=== PATIENT | male | born 1935 | race Caucasian/White ===

== ENCOUNTER 2017-01-24 22:11 | Emergency (ER) | payer MEDICARE ==
[2017-01-24 22:45] VITALS: BP 161/95
== END 2017-01-24 23:08 | disposition left against medical advice (07) ==
LOC: ER 22:11
DX: Z53.21 Procedure and treatment not carried out due to patient leaving prior to being seen by health care provider (principal)

== ENCOUNTER → 2017-12-27 | Outpatient (CLI) | payer MEDICARE ==
[2017-12-27 09:37] LABS: CHOLESTEROL 130.94 mg/dL (0-200); TRIGLYCERIDES 84 mg/dL (<150)
[2017-12-27 09:45] LABS: DIRECT LDL 59 mg/dL (<100)
== END ==
LOC: OD 08:33
PROVIDERS: ATTEND Family Medicine Geriatric Medicine
DX: E03.9 Hypothyroidism, unspecified (principal); E78.5 Hyperlipidemia, unspecified; E55.9 Vitamin D deficiency, unspecified; Z79.899 Other long term (current) drug therapy
CPT/HCPCS: 36415; 80061; 82607; 83735; 84443

== ENCOUNTER 2018-04-05 22:45 | Emergency (ER) | payer MEDICARE ==
[2018-04-05 23:05] VITALS: BP 177/78
== END 2018-04-05 23:54 | disposition left against medical advice (07) ==
LOC: ER 22:45
DX: Z53.21 Procedure and treatment not carried out due to patient leaving prior to being seen by health care provider (principal)

== ENCOUNTER → 2018-04-29 | Outpatient (CLI) | payer MEDICARE ==
--- NOTE | 2018-04-29 15:59 | RADIOLOGY REPORT (SQ) ---
EXAM DESCRIPTION: CT CHEST WITHOUT COMPLETED DATE/TIME: 04/29/2018 1:55 pm REASON FOR STUDY: R91.1 SOLITARY PULMONARY NODULE R91.1 SOLITARY PULMONARY NODULE COMPARISON: None. TECHNIQUE: CT scan performed of the chest without intravenous contrast. Images reviewed with lung, soft tissue and bone windows. Reconstructed coronal and sagittal MPR images reviewed. All images st ored on PACS. All CT scanners at this facility use dose modulation, iterative reconstruction, and/or weight based d osing when appropriate to reduce radiation dose to as low as reasonably achievable (ALARA). [facility]: Dose Right [facility]: CareDose [facility]: Dose Right [facility]: Teradose 4D [facility]: [employer] RADIATION DOSE: CT Rad equipment meets quality standard of care and radiation dose reduction techniq ues were employed. CTDIvol: 7.0 mGy. DLP: 301 mGy-cm. mGy. LIMITATIONS: No technical limitations. FINDINGS: LUNGS AND PLEURA: 7 mm subpleural ground-glass nodule in the right lung on image 43. HILAR AND MEDIASTINAL STRUCTURES: No identified masses or abnormal nodes. No obvious aneurysm. HEART AND VASCULAR STRUCTURES: No aneurysm. No pericardial effusion. Significant coronary atheroscl erosis. UPPER ABDOMEN: Abdominal aortic stent. THYROID AND OTHER SOFT TISSUES: No masses. No adenopathy. BONES: No significant finding. HARDWARE: None in the chest. OTHER: No other significant findings. IMPRESSION: 1. 7 mm subpleural ground-glass nodule in the right lung. 2. Coronary atherosclerosis. COMMENT: Fleischner Criteria for Ground Glass Nodules: >6mm ground glass single nodule: CT 6-12 mo, then CT every 2 yr until 5 yr TECHNICAL DOCUMENTATION: JOB ID: [id number] Quality ID # 436: Final reports with documentation of one or more dose reduction techniques (e.g., Au tomated exposure control, adjustment of the mA and/or kV according to patient size, use of iterative reconstruction technique) 2010 [employer]- All Rights Reserved Reading location - IP/workstation name: [email or web address]
== END ==
LOC: RAD 14:20
PROVIDERS: ATTEND Family Medicine Geriatric Medicine
DX: R91.1 Solitary pulmonary nodule (principal); I25.10 Atherosclerotic heart disease of native coronary artery without angina pectoris
CPT/HCPCS: 71250

== ENCOUNTER → 2018-11-06 | Day surgery (SDC) | payer MEDICARE ==
--- NOTE | 2018-11-06 14:32 | RADIOLOGY REPORT (SQ) ---
EXAM DESCRIPTION: ARTHRO SHOULDER INJECTION; FLUORO/NEEDLE PLACEMENT COMPLETED DATE/TIME: 11/06/2018 2:17 pm REASON FOR STUDY: INCOMPLETE ROTATOR CUFF TEAR OR RUPTURE OF R SHOULDER (M75.111) M75.111 INCOMPLET E ROTATR-CUFF TEAR/RUPTR OF R SHOULDER, NOT COMPARISON: None. FLUOROSCOPY TIME: 22 seconds. 2 images saved to PACS. LIMITATIONS: None. PROCEDURE: Procedure, risks, benefits and alternative explained to patient who then gave written con sent. The right shoulder was marked and a time-out was called for correct marking verification. Pos terior entry site marked using fluoroscopic guidance. Shoulder prepped and draped using maintenance technician 3rd shift nique. Local anesthesia achieved using 1% lidocaine injection. 22 gauge spinal needle introduced int o the joint space under direct fluoroscopic visualization. Non-ionic contrast instilled to confirm i ntra-articular position. Additional dilute non-ionic contrast instilled. Needle removed and entry s ite covered with sterile bandage. No immediate complications noted. TECHNIQUE: Digital images acquired during fluoroscopy and stored on PACS. Patient immediately take n to the CT suite for additional imaging. INJECTION LOCATION: Posterior right shoulder. CONTRAST TYPE AND AMOUNT: 2 mL Omnipaque initially followed by 10 mL Omnipaque saline solution. IMPRESSION: SUCCESSFUL NEEDLE PLACEMENT AND INJECTION FOR RIGHT SHOULDER CT ARTHROGRAM USING POSTERI OR APPROACH. COMMENT: Quality ID 145: Final reports for procedures using fluoroscopy that document radiation exp osure indices, or exposure time and number of fluorographic images (if radiation exposure indices are not available) TECHNICAL DOCUMENTATION: JOB ID: [id number] [employer]- All Rights Reserved Reading location - IP/workstation name: [facility]
--- NOTE | 2018-11-06 14:32 | RADIOLOGY REPORT (SQ) ---
EXAM DESCRIPTION: ARTHRO SHOULDER INJECTION; FLUORO/NEEDLE PLACEMENT COMPLETED DATE/TIME: 11/06/2018 2:17 pm REASON FOR STUDY: INCOMPLETE ROTATOR CUFF TEAR OR RUPTURE OF R SHOULDER (M75.111) M75.111 INCOMPLET E ROTATR-CUFF TEAR/RUPTR OF R SHOULDER, NOT COMPARISON: None. FLUOROSCOPY TIME: 22 seconds. 2 images saved to PACS. LIMITATIONS: None. PROCEDURE: Procedure, risks, benefits and alternative explained to patient who then gave written con sent. The right shoulder was marked and a time-out was called for correct marking verification. Pos terior entry site marked using fluoroscopic guidance. Shoulder prepped and draped using evidence technician nique. Local anesthesia achieved using 1% lidocaine injection. 22 gauge spinal needle introduced int o the joint space under direct fluoroscopic visualization. Non-ionic contrast instilled to confirm i ntra-articular position. Additional dilute non-ionic contrast instilled. Needle removed and entry s ite covered with sterile bandage. No immediate complications noted. TECHNIQUE: Digital images acquired during fluoroscopy and stored on PACS. Patient immediately take n to the CT suite for additional imaging. INJECTION LOCATION: Posterior right shoulder. CONTRAST TYPE AND AMOUNT: 2 mL Omnipaque initially followed by 10 mL Omnipaque saline solution. IMPRESSION: SUCCESSFUL NEEDLE PLACEMENT AND INJECTION FOR RIGHT SHOULDER CT ARTHROGRAM USING POSTERI OR APPROACH. COMMENT: Quality ID 145: Final reports for procedures using fluoroscopy that document radiation exp osure indices, or exposure time and number of fluorographic images (if radiation exposure indices are not available) TECHNICAL DOCUMENTATION: JOB ID: [id number] [employer]- All Rights Reserved Reading location - IP/workstation name: [email or web address]
--- NOTE | 2018-11-07 08:49 | RADIOLOGY REPORT (SQ) ---
EXAM DESCRIPTION: CT RT UPPER EXTREMITY WITH COMPLETED DATE/TIME: 11/06/2018 3:44 pm REASON FOR STUDY: INCOMPLETE ROTATOR CUFF TEAR OR RUPTURE OF R SHOULDER (M75.111) M75.111 INCOMPLET E ROTATR-CUFF TEAR/RUPTR OF R SHOULDER, NOT COMPARISON: Arthrogram same date TECHNIQUE: Axial imaging performed through the [facility] with reformatted oblique coronal and ob lique sagittal imaging windowed for bone and soft tissues. All CT scanners at this facility use dose modulation, iterative reconstruction, and/or weight based d osing when appropriate to reduce radiation dose to as low as reasonably achievable (ALARA). [facility]: Dose Right [facility]: CareDose [facility]: Dose Right [facility]: Teradose 4D [facility]: [employer] RADIATION DOSE: CT Rad equipment meets quality standard of care and radiation dose reduction techniq ues were employed. CTDIvol: 11.1 mGy. DLP: 289 mGy-cm. mGy. LIMITATIONS: None. FINDINGS: SOFT TISSUES: No supraclavicular or axillary adenopathy. BONY ARCHITECTURE: Normal bone density. No lytic or blastic lesions. GLENOHUMERAL JOINT: Osteoarthritis with [id number] appearance, flattening of the articular surface of the glenoid, and circumferential osteophytes around the humeral head. ACROMION AND AC JOINT: Type 2 acromion with AC joint mild undersurface bony spurring best shown on sa gittal image 39. ROTATOR CUFF: Broad diffuse full-thickness tear throughout the supra and infraspinatus tendons, with fatty atrophy of the supraspinatus muscle. The right humeral head abuts the undersurface of the acro mion. Subscapularis is intact. GLENOID, LABRUM AND BICEPS: Intra-articular long head biceps tendon is diffusely thin. Superior labr al tear, with diffuse labral degeneration OTHER: There is leakage of contrast from the glenohumeral joint into the subacromial/subdeltoid bursa IMPRESSION: Full-thickness supra and infraspinatus tear as above TECHNICAL DOCUMENTATION: JOB ID: [id number] Quality ID # 436: Final reports with documentation of one or more dose reduction techniques (e.g., Au tomated exposure control, adjustment of the mA and/or kV according to patient size, use of iterative reconstruction technique) 2010 [employer]- All Rights Reserved Reading location - IP/workstation name: [email or web address]
== END ==
LOC: RAD 13:25
PROVIDERS: ATTEND Family Medicine
DX: M75.111 Incomplete rotator cuff tear or rupture of right shoulder, not specified as traumatic (principal)
CPT/HCPCS: 23350; 77002

== ENCOUNTER 2020-03-08 18:33 | Emergency (ER) | payer MEDICARE ==
--- NOTE | 2020-03-08 19:06 | ER Document Report ---
ED Medical Screen (RME) - General Chief Complaint: Nose Bleed Stated Complaint: NOSE BLEED Time Seen by Provider: 03/08/20 19:03 Primary Care Provider: FILIBERTO WHITAKER PA [Primary Care Provider] - Follow up as needed Mode of Arrival: Ambulatory Information source: Patient Notes: 84-year-old male presented to ED for complaint of a nosebleed off and on all day. He states every time he gets a stopped will stop follow-up and then start bleeding again. He states he has a son that there is a doctor and he told him to put tampons in his nose. He states he did that and the first couple were completely saturated when he has in his nose now is not saturated. Does not obviously seem to be bleeding but I have not removed the tampon. He does have some conjunctival hemorrhage on the left eye. His blood pressure was very high when he first came in now it is 191/98. He states he does not normally have elevated blood pressure. He is alert oriented respirations regular and unlabored speaking in full sentences. He states he is on Eliquis and is very concerned because it has bled most of the day. I have greeted and performed a rapid initial assessment of this patient. A comprehensive ED assessment and evaluation of the patient, analysis of test results and completion of medical decision making process will be conducted by an additional ED providers. TRAVEL OUTSIDE OF THE [place] IN LAST 30 DAYS: No - Related Data Allergies/Adverse Reactions: No Known Allergies Allergy (Unverified 01/24/17 22:45) Home Medications: eliquis Past Medical History - Social History Frequency of alcohol use: None Drug Abuse: None Renal/ Medical History: Denies: Hx Peritoneal Dialysis Physical Exam - Vital signs Vitals: Temp Pulse Resp BP Pulse Ox 97.5 F 76 18 191/129 H 97 03/08/20 18:36 03/08/20 18:36 03/08/20 18:36 03/08/20 18:36 03/08/20 18:36 Course - Vital Signs Vital signs: Temp Pulse Resp BP Pulse Ox 97.5 F 71 18 196/98 H 98 03/08/20 18:59 03/08/20 19:02 03/08/20 18:36 03/08/20 19:02 03/08/20 19:02 Doctor's Discharge - Discharge Referrals: FILIBERTO WHITAKER PA [Primary Care Provider] - Follow up as needed
[2020-03-08 19:22] LABS: ABSOLUTE LYMPHOCYTES (AUTO) 1.5 10^3/uL (0.5-4.7); ABSOLUTE MONOCYTES (AUTO) 0.5 10^3/uL (0.1-1.4); ABSOLUTE NEUT (AUTO) 4.6 10^3/uL (1.7-8.2); BASOPHILS % (AUTO) 0.4 % (0-2); EOSINOPHILS % (AUTO) 0.7 % (0-6); HEMATOCRIT 43.5 % (37.9-51.0); HEMOGLOBIN 15.1 g/dL (13.5-17.0); LYMPHOCYTES % (AUTO) 21.9 % (13-45); MEAN CORPUSCULAR HEMOGLOBIN 30.9 pg (27.0-33.4); MEAN CORPUSCULAR HGB CONC 34.7 g/dL (32.0-36.0); MEAN CORPUSCULAR VOLUME 89 fl (80-97); MONOCYTES % (AUTO) 7.4 % (3-13); PLATELET COUNT 119 10^3/uL (150-450); RED CELL DISTRIBUTION WIDTH 14.5 % (11.5-14.0); SEGMENTED NEUTROPHILS % (AUTO) 69.6 % (42-78); TOTAL CELLS COUNTED % (AUTO) 100 %; WHITE BLOOD COUNT 6.6 10^3/uL (4.0-10.5)
[2020-03-08 19:32] LABS: INTERNATIONAL RATION (INR) 1.16; PROTHROMBIN TIME 14.9 SEC (11.4-15.4)
[2020-03-08 19:33] LABS: PARTIAL THROMBOPLASTIN TIME 35.5 SEC (23.5-35.8)
[2020-03-08 19:48] LABS: ALBUMIN 4.6 g/dL (3.5-5.0); ALKALINE PHOSPHATASE 75 U/L (38-126); ANION GAP 7 (5-19); ASPARTATE AMINO TRANSFERASE 29 U/L (17-59); BILIRUBIN,TOTAL 1.2 mg/dL (0.2-1.3); BLOOD UREA NITROGEN 27 mg/dL (7-20); CALCIUM 9.8 mg/dL (8.4-10.2); CARBON DIOXIDE 25 mmol/L (22-30); CHLORIDE 106 mmol/L (98-107); GLUCOSE 107 mg/dL (75-110); POTASSIUM 4.2 mmol/L (3.6-5.0); TOTAL PROTEIN 7.5 g/dL (6.3-8.2)
--- NOTE | 2020-03-08 20:52 | ER Document Report ---
ED General - General Chief Complaint: Nose Bleed Stated Complaint: NOSE BLEED Time Seen by Provider: 03/08/20 19:03 Primary Care Provider: FILIBERTO WHITAKER PA [Primary Care Provider] - Follow up as needed Mode of Arrival: Ambulatory TRAVEL OUTSIDE OF THE [place] IN LAST 30 DAYS: No - HPI Notes: Patient is an 84-year-old male who presents to the emergency department for evaluation of a nosebleed. The patient was just started on Eliquis for his atrial fibrillation 90 days ago. He states that he has had atrial fibrillation for a few years. He was just convinced to start this blood thinner by his associate product integrity engineer. He states that since then he is developed a left subconjunctival hemorrhage, and now has had repeated nosebleeds. He states today for several hours he could not get his heart nosebleed to cease. He denies any associated chest pain or shortness of breath. No trauma to the area. He denies any nausea or dizziness. - Related Data Allergies/Adverse Reactions: No Known Allergies Allergy (Unverified 01/24/17 22:45) Home Medications: eliquis, rosuvastatin, sotalol, latanoprost Past Medical History - General Information source: Patient - Social History Smoking Status: Never Smoker Frequency of alcohol use: None Drug Abuse: None Family History: Reviewed & Not Pertinent Patient has homicidal ideation: No - Past Medical History Cardiac Medical History: Reports: Hx Atrial Fibrillation, Hx Hypercholesterolemia Renal/ Medical History: Denies: Hx Peritoneal Dialysis Malignancy Medical History: Reports Other - Rectal cancer Review of Systems - Review of Systems EENT: See HPI -: Yes All other systems reviewed and negative Physical Exam - Vital signs Vitals: Temp Pulse Resp BP Pulse Ox 97.5 F 76 18 191/129 H 97 03/08/20 18:36 03/08/20 18:36 03/08/20 18:36 03/08/20 18:36 03/08/20 18:36 - Notes Notes: This is a very pleasant 84-year-old male who appears his stated age, no acute distress. Head is normocephalic and atraumatic, pupils are equal round, reactive to light. Patient has a tampon in his right nostril. It is saturated with saline, removed. There is a small amount of blood clot in the superior aspect of the right nostril. I do not see any active bleeding. No blood in the posterior pharynx. Heart is irregularly irregular, lungs are clear to all station bilaterally. Abdomen soft, nontender, active bowel sounds. Skin is warm and dry. Course - Re-evaluation Re-evalutation: 03/08/20 20:58 Patient presents to the emergency department for evaluation. His blood pressure is markedly elevated. He states his blood pressure normally does not run high. He states he has been stressed, chasing down this nosebleed" all day. He does have the ability to check it at home. He understands that elevated blood pressure could be contributing to his continuous nosebleed. Patient states he is also, independently, made the decision to discontinue his Eliquis. We talked at length about the indications for Eliquis, including stroke prevention. He voiced understanding, but still does not believe it is appropriate therapy for him at this time. He will discuss this with his primary care provider. I explained him to keep an eye on his blood pressure at home as well and discussed this with his PCP and cardiology. He voiced understanding to the risks associated with discontinuation of anticoagulant therapy. He was anxious to be discharged. He is to return to the ED with worsening. - Vital Signs Vital signs: Temp Pulse Resp BP Pulse Ox 97.5 F 71 18 196/98 H 98 03/08/20 18:59 03/08/20 19:02 03/08/20 18:36 03/08/20 19:02 03/08/20 19:02 - Laboratory Result Diagrams: 03/08/20 19:12 03/08/20 19:12 Laboratory results interpreted by me: 03/08/20 03/08/20 19:12 19:12 RDW 14.5 H Plt Count 119 L BUN 27 H Est GFR (MDRD) Non-Af 57 L Discharge - Discharge Clinical Impression: Epistaxis not due to trauma Condition: Stable Disposition: HOME, SELF-CARE Instructions: Nosebleed Instructions ([facility]) Additional Instructions: Try not to touch, rub, or blow your nose. As discussed, there are risks associated with discontinuing Eliquis. Please discuss this with your primary care provider as well as your associate product integrity engineer. If your bleeding begins again, apply direct pressure for 15 minutes without checking. If it continues to bleed he can present back to the emergency department for further care. Please note your blood pressure was elevated today. This is likely secondary to stress, but is probably contributing to your nosebleeds. Please monitor your blood pressure at home closely. If you continue to have elevated numbers, discussed this with your primary care doctor, you may need medication adjustments. Return to the emergency department with worsening or new concerning symptoms of any sort. Referrals: FILIBERTO WHITAKER PA [Primary Care Provider] - Follow up as needed
[2020-03-08 21:39] VITALS: BP 191/105
== END 2020-03-08 21:38 | disposition home or self-care (01) ==
LOC: ER 18:33
DX: R04.0 Epistaxis (principal); R03.0 Elevated blood-pressure reading, without diagnosis of hypertension; E78.00 Pure hypercholesterolemia, unspecified; I48.91 Unspecified atrial fibrillation; Z79.01 Long term (current) use of anticoagulants; Z79.899 Other long term (current) drug therapy; Z85.048 Personal history of other malignant neoplasm of rectum, rectosigmoid junction, and anus
CPT/HCPCS: 36415; 80053; 85025; 85610; 85730; 99283